=== PATIENT | male | born 1950 | race Caucasian/White ===

== ENCOUNTER → 2016-08-20 | Outpatient (CLI) | payer MEDICARE ==
[~2016-08-20] MED LIST: ALBUTEROL17 GM INH; AMLODIPINE BESYL5 MG PO; ASPIRIN PO; AUGMENTIN PO; AUGMENTIN1 TAB.SR1 PO; AZELASTINE137 MCG/0.; CARDIZEM CD PO; FLONASE 0.05% N16 G1; FLONASE16 GM; HUMIBID DM1 TAB.SR . PO; MONTELUKAST SOD10 MG PO; MUCINEX DM1 TAB.SR . PO; NASONEX17 GM; PANTOPRAZOLE SO40 MG PO; PROAIR HFA8.5 GM IH; PROTONIX PO; PROTONIX20 MG PO; SPIRIVA18 MCG PO; SYMBICORT INH; XOLAIR150 MG/1.2 SQ; XOLAIR150 MG/1.2 SUBQ
== END | disposition home or self-care (01) ==
LOC: CSSDAY 11:37
DX: J45.50 Severe persistent asthma, uncomplicated (principal)
CPT/HCPCS: J2357

== ENCOUNTER → 2016-09-03 | Outpatient (CLI) | payer MEDICARE, OTHER | END | disposition home or self-care (01) | LOC: CSSDAY 12:32 | DX: J45.50 Severe persistent asthma, uncomplicated (principal); Z79.899 Other long term (current) drug therapy | CPT/HCPCS: J2357 ==

== ENCOUNTER → 2016-09-24 | Outpatient (CLI) | payer MEDICARE | END | disposition home or self-care (01) | LOC: CSSDAY 10:57 | DX: J45.50 Severe persistent asthma, uncomplicated (principal); Z79.899 Other long term (current) drug therapy | CPT/HCPCS: 96372; J2357 ==

== ENCOUNTER → 2016-10-08 | Outpatient (CLI) | payer MEDICARE | END | disposition home or self-care (01) | LOC: CSSDAY 11:42 | DX: J45.50 Severe persistent asthma, uncomplicated (principal); Z79.899 Other long term (current) drug therapy | CPT/HCPCS: J2357 ==

== ENCOUNTER → 2017-02-28 | Outpatient (CLI) | payer MEDICARE ==
--- NOTE | ~2017-02-28 | CT57 ---
[facility] A Service of [facility] & [facility] RADIOLOGY TEXT RESULTS PATIENT: ALEX HUDSON LOCATION: [facility] : 48 UNIT #: [id number] AGE: [address]: Liborio Moore MD SEX: M ORDER DR: [id number] [facility] [address] [place], [place] [address] [id number] O MR#: [id number] [facility] #: [id number] NAME: ALEX HUDSON. : 1950 SEX: M STUDY DATE/TIME: 02/28/2017 10:23 UNIT: [facility] ROOM: STUDY DESCRIPTION: CT Chest Wo Cont Attending Physician: Liborio Moore M.D. Referring Physician: Liborio Moore M.D. Ordering Physician: Liborio Moore M.D. Primary Care Physician: Liborio Moore M.D. MEDICAL IMAGING REPORT This report is preliminary unless electronic signature is present EXAM Chest CT, no contrast, 02/28/2017 INDICATIONS A 66-year-old male with history of aortic aneurysm. Followup. Asthma. There is a skin carcinoma diagnosed in 2017. TECHNIQUE Noncontrast CT chest performed. COMPARISON 07/11/2016. This CT exam was performed with one or more of the following radiation dose reduction techniques: automatic exposure control, adjustment of mA and/or kV according to patient size, and iterative reconstruction. FINDINGS CT chest: The lungs are hyperinflated. Chronic atelectasis and fibrosis present in the left greater than right lung bases. No effusion. There has been interval improvement in the left lung base compared to the prior study. Chronic-appearing atelectasis and scarring in the right middle lobe as well. Interval improvement tree-in-bud opacities in the right lower lobe. No new dense pneumonia. No effusion. Included thyroid unremarkable. No pericardial effusion. No axillary adenopathy. There is atherosclerotic change in the aorta. The ascending aorta measures 4.1 cm which is aneurysmal but stable. The descending thoracic aorta is tortuous. It measures about 3 cm maximum diameter which is unchanged. Probable reactive mediastinal nodes are stable. Included upper abdomen demonstrates no aortic aneurysm. There are [facility] A Service of [facility] & [facility] RADIOLOGY TEXT RESULTS PATIENT: ALEX HUDSON LOCATION: [facility] : 48 UNIT #: [id number] AGE: [address]: Liborio Moore MD SEX: M ORDER DR: granulomatous changes within the spleen. The remainder of the included upper abdomen is negative. Osseous structures demonstrate spinal degenerative change. IMPRESSION 1. Background changes of pulmonary hyperinflation and emphysema with chronic appearing atelectasis and scarring most conspicuous in the left lower lobe and right middle lobe and to a lesser extent the lingula. 2. Previously described 8 mm nodule in the upper lobe on the right measures about 6 mm on today's examination. This may be partly related to technical factors. Documentation of 2 years of stability on imaging is recommended to confirm benignity. Given stability over the past 8 months, consider interval followup in 16-18 months for reassessment. 3. There is no effusion or dense pneumonia. 4. Aneurysmal dilatation of the ascending aorta stable at 4.1 cm. 5. There is no new adenopathy. 6. Upper abdomen appears negative. Dictated by... Michael Waldron M.D. THIS IS AN ELECTRONICALLY VERIFIED REPORT Michael Waldron M.D. at 03/01/2017 8:28 AM Geraldo TD: 02/28/2017 19:50 JOB #: [id number] MEDICAL IMAGING REPORT Page 1 of 1 COPY
== END | disposition home or self-care (01) ==
LOC: CCAT 02-26 10:40
DX: I71.9 Aortic aneurysm of unspecified site, without rupture (principal); J43.9 Emphysema, unspecified; I71.2 Thoracic aortic aneurysm, without rupture
CPT/HCPCS: 71250